=== PATIENT | female | born 1965 | race Caucasian/White ===

== ENCOUNTER → 2024-08-15 12:22 | Outpatient (CLI) | payer MEDICARE, SELFPAY ==
[2024-08-15 13:09] LABS: Add Manual Diff / Slide Review NO; Basophils Absolute Auto 100 /uL (0-100); Basophils Percent Auto 0.7 % (0-2); Eosinophils Absolute Auto 100 /uL (0-450); Eosinophils Percent Auto 1.4 % (2-4); Hematocrit 36.8 % (36-46); Hemoglobin 12.4 g/dL (12.0-16.0); Lymphocytes Absolute Auto 2200 /uL (1100-4500); Mean Corpuscular HGB Conc 33.6 % (30-36); Mean Corpuscular Hemoglobin 31.3 PG (26-34); Mean Corpuscular Volume 93.3 fL (80-100); Monocytes Absolute Auto 600 /uL (0-900); Monocytes Percent Auto 6.2 % (3-14); Neutrophils Absolute Auto 6000 /uL (1500-7000); Neutrophils Percent Auto 66.7 % (50-75); Platelet Count 260 X10^3/uL (150-400); Red Blood Cell Count 3.94 X10^6/uL (4.0-5.2); Red Cell Distribution Width 14.1 % (11.6-14.8); White Blood Cell Count 8.9 X10^3/uL (4.5-11.0)
[2024-08-15 13:37] LABS: Alanine Aminotransferase 17 IU/L (<35); Albumin 4.4 g/dL (3.5-5.0); Albumin Globulin Ratio 2.2 (1.0-2.8); Alkaline Phosphatase 36 U/L (38-126); Aspartate Aminotransferase 20 IU/L (14-36); BUN Creatinine Ratio 22.5 (6-22); Bilirubin Total 0.3 mg/dL (0.2-1.3); Blood Urea Nitrogen 25 mg/dL (7-17); Calcium 9.6 mg/dL (8.4-10.2); Carbon Dioxide 26 mmol/L (22-32); Chloride 106 mmol/L (98-107); Cholesterol 142 mg/dL (140-199); Estimated Glomerular Filt Rate 58 mL/min (>60); Glucose 199 mg/dL (70-99); HDL Cholesterol 57 mg/dL (40-60); HEMOLYSIS < 15 (0-50); LDL Cholesterol Calculated 75 mg/dL (<100); Potassium 4.8 mmol/L (3.4-5.1); Sodium 139 mmol/L (137-145); Total Protein 6.4 g/dL (6.3-8.2); Triglycerides 51 mg/dL (35-150)
[2024-08-15 15:48] LABS: Creatinine Urine Random 282.78 mg/dL
[2024-08-15 15:52] LABS: Microalbumin Urine Random 1.2 mg/dL (0-1.6)
== END ==
PROVIDERS: PCP Family Medicine; Referring Provider Family Medicine; Visit Provider Family Medicine
DX: E11.9 Type 2 diabetes mellitus without complications (principal)
CPT/HCPCS: 36415; 80053; 80061; 82043; 82570; 85025

== ENCOUNTER 2024-09-05 13:45 | Emergency (ER) | payer MEDICARE, MEDICAID, SELFPAY ==
[2024-09-05] VITALS (8 sets, daily range): BP systolic 143–170; BP diastolic 80–103; PULSE 75–85; RESP 12–36; TEMP 36.8; O2SAT 95–98; BMI 24.2
--- NOTE | 2024-09-05 14:10 | EKG_ITS ---
[address] [address] Test Date: 2024-09-05 Pat Name: Flor Mulligan Department: Room: Gender: Female [employer] Psychologist: FABIANO : 1965 Requested By: Order Number: [id number] Reading MD: Ramón Centeno Measurements Intervals [place] Rate: 72 P: 62 HI: 150 QRS: 76 QRSD: 76 T: 67 QT: 374 QTc: 409 Interpretive Statements Sinus rhythm with marked sinus arrhythmia Electronically Signed On 09-06-2024 18:59:15 PDT by Ramón Centeno
--- NOTE | 2024-09-05 14:17 | ED.NAVMDI ---
HPI - Nausea/Vomiting/Diarrhea General Chief complaint: Abdominal Pain Stated complaint: Throwing up all morning Time Seen by Provider: 09/05/24 14:17 Source: patient Mode of arrival: Ambulatory History of Present Illness HPI Narrative: 59-year-old female with past medical history of hyperlipidemia, diabetes, fibromyalgia, hypertension, presents to the emergency department from home for evaluation of nausea vomiting abdominal pain ongoing and persistent since yesterday. She states that she is not having any other symptoms such as headache visual disturbances chest pain shortness of breath or any other GI/ symptoms. Related Data Home Medications ?Medication ?Instructions ?Recorded ?Confirmed atorvastatin 40 mg tablet 40 mg PO DAILY 07/18/24 07/18/24 buspirone 30 mg tablet 30 mg PO BID 07/18/24 07/18/24 gabapentin 600 mg tablet 600 mg PO 3XD 07/18/24 07/18/24 lamotrigine 100 mg tablet 100 mg PO BID 07/18/24 07/18/24 metformin 1,000 mg tablet 1,000 mg PO BID 07/18/24 07/18/24 omeprazole 20 mg capsule,delayed 20 mg PO DAILY 07/18/24 07/18/24 release quetiapine 300 mg tablet 300 mg PO DAILY 07/18/24 07/18/24 sitagliptin phosphate 100 mg 100 mg PO DAILY 07/18/24 07/18/24 tablet (Januvia) Previous Rx's ?Medication ?Instructions ?Recorded duloxetine 60 mg capsule,delayed 60 mg PO DAILY #90 caps 07/18/24 release metoclopramide HCl 5 mg tablet 5 mg PO 4XD #120 tabs 07/18/24 pioglitazone 15 mg tablet 15 mg PO DAILY #90 tabs 07/18/24 lisinopril 5 mg tablet 5 mg PO DAILY #90 tabs 08/20/24 lorazepam 2 mg tablet 2 mg PO Q8H PRN anxiety #90 tabs 08/22/24 sodium,potassium,mag sulfates 17.5 See Rx Instructions PO .COMPLEX 08/30/24 gram-3.13 gram-1.6 gram oral soln #354 mL (Suprep Bowel Prep Kit) prochlorperazine 25 mg rectal 25 mg CA BID PRN nausea and 09/05/24 suppository (Compazine) vomiting 1 week #12 ea Allergies Allergy/AdvReac Type Severity Reaction Status Date / Time cefazolin (From [facility]) Allergy Verified 09/05/24 13:54 NSAIDS (Non-Steroidal Allergy Verified 09/05/24 13:54 Anti-Inflamma Review of Systems Review of Systems Narrative: General: Denies fever, chills, weight loss HEENT: Denies headache, eye drainage, eye irritation, head trauma, sore throat, voice change Cardiovascular: Denies any chest pain, palpitations, tachycardia Respiratory: Denies any shortness of breath, cough, wheeze, stridor GI/: Positive abdominal pain, nausea, vomiting, diarrhea, denies bright red blood per rectum, melanotic stools, urinary frequency, urinary retention, dysuria, hematuria MSK: Denies any joint pain, muscle pains, swelling Skin: Denies any rashes, lesions, discoloration Neuro: Denies any headache, lightheadedness, dizziness, fainting, weakness Psych: Denies SI/HI Patient History Medical History (Updated 09/05/24 @ 16:00 by Shahriar Kearns DO) DM type 2 (diabetes mellitus, type 2) Hyperlipidemia Sciatic pain Depression (~1997) History of bipolar disorder Anxiety (~1997) Headache (~2006) Fibromyalgia (~1996) Chronic back pain (~1994) Irritable bowel syndrome (~2009) GERD (gastroesophageal reflux disease) Hypertension (~1996) Surgical History (Updated 06/22/24 @ 21:05 by Alix Morel) Anesthesia Fibroids History of carpal tunnel repair History of tubal ligation (~1988) History of cholecystectomy History of shoulder surgery Family History (Updated 06/22/24 @ 21:08 by Alix Morel) Father Diabetes mellitus Hyperlipidemia Hypertension Mental health problem Mother ALS (amyotrophic lateral sclerosis) Brother Hyperlipidemia Hypertension Mental health problem Grandfather Diabetes mellitus Hyperlipidemia Hypertension Grandmother Cancer Diabetes mellitus Social History Smoking Status: Former smoker Smoking Status: Former smoker Exam Initial Vital Signs Initial Vital Signs: Vital Signs Temperature 98.3 F 09/05/24 13:53 Pulse Rate 75 09/05/24 13:53 Respiratory Rate 20 09/05/24 13:53 Blood Pressure 143/86 H 09/05/24 13:53 Pulse Oximetry 97 09/05/24 13:53 Oxygen Delivery Method Room Air 09/05/24 13:53 Course Orders Ordered: ED Orders 09/05/24 12:40 Complete Blood Count AUTO DIFF Stat Comprehensive Metabolic Panel Stat Lipase Stat MAG [Magnesium] Stat 09/05/24 14:03 EKG-12 Lead Stat 09/05/24 14:18 CT abdomen pelvis w con Stat 09/05/24 14:34 Ictotest Urine Stat Urine Microscopic Stat Ondansetron HCl (Ondansetron 4 Mg/2 Ml Inj) 4 mg IV NOW PRN PRN Reason: Nausea And Vomiting Last Admin: 09/05/24 14:38 Dose: 4 mg Documented By: JENNIFER Ondansetron HCl (Ondansetron 4 Mg Odt) 4 mg PO NOW PRN PRN Reason: Nausea And Vomiting Discontinued Medications Diphenhydramine HCl (Diphenhydramine 50 Mg/Ml Vial) 25 mg IV NOW ONE Stop: 09/05/24 15:38 Last Admin: 09/05/24 15:42 Dose: 25 mg Documented By: JENNIFER Sodium Chloride (Normal Saline 0.9%) 1,000 mls @ 1,000 mls/hr IV BOLUS ONE Stop: 09/05/24 15:17 Last Infusion: 09/05/24 15:34 Dose: Infused Documented By: Admin: 09/05/24 14:38 Dose: 1,000 mls/hr Documented By: JENNIFER Metoclopramide HCl (Metoclopramide 10 Mg/2 Ml Inj) 10 mg IV NOW ONE Stop: 09/05/24 15:38 Last Admin: 09/05/24 15:42 Dose: 10 mg Documented By: JENNIFER Morphine Sulfate (Morphine 4 Mg/Ml Inj) 4 mg IV NOW ONE Stop: 09/05/24 15:38 Last Admin: 09/05/24 15:42 Dose: 4 mg Documented By: JENNIFER Vital Signs Vital signs: Vital Signs - 8 hr 09/05/24 13:53 09/05/24 14:39 09/05/24 15:03 Temperature 98.3 F Pulse Rate 75 76 77 Respiratory Rate 20 12 26 H Blood Pressure 143/86 H 165/96 H Pulse Oximetry 97 97 95 Oxygen Delivery Method Room Air Room Air 09/05/24 15:04 09/05/24 15:04 09/05/24 15:09 Temperature Pulse Rate 75 Respiratory Rate 36 H Blood Pressure 159/100 H 158/103 H Pulse Oximetry 98 Oxygen Delivery Method 09/05/24 15:09 09/05/24 15:30 09/05/24 15:30 Temperature Pulse Rate 78 78 Respiratory Rate 21 23 Blood Pressure 170/91 H Pulse Oximetry 97 98 Oxygen Delivery Method Room Air MDM - Nausea/Vomiting/Diarrhea Differential Diagnosis Differential diagnosis: Likely food poisoning, gastroenteritis, drug-induced nausea and vomiting, dehydration and other (Electrolyte abnormality, diverticulitis, drug induced vomiting) Lab Data 09/05/24 12:40 09/05/24 12:40 Labs: Lab Results 09/05/24 09/05/24 Range/Units 12:40 14:34 WBC 13.6 H (4.5-11.0) X10^3/uL RBC 4.46 (4.0-5.2) X10^6/uL Hgb 13.6 (12.0-16.0) g/dL Hct 41.3 (36-46) % MCV 92.6 (80-100) fL MCH 30.5 (26-34) PG MCHC 33.0 (30-36) % RDW 13.9 (11.6-14.8) % Plt Count 250 (150-400) X10^3/uL Neut % (Auto) 91.0 H (50-75) % Lymph % (Auto) 5.1 L (25-40) % [place] % (Auto) 3.4 (3-14) % Eos % (Auto) 0.1 L (2-4) % Baso % (Auto) 0.4 (0-2) % Neut # (Auto) 98404 H (4430-8593) /uL Lymph # (Auto) 700 L (6611-6208) /uL [place] # (Auto) 500 (0-900) /uL Eos # (Auto) 0 (0-450) /uL Baso # (Auto) 100 (0-100) /uL Sodium 138 (137-145) mmol/L Potassium 4.4 (3.4-5.1) mmol/L Chloride 104 (98-107) mmol/L Carbon Dioxide 21 L (22-32) mmol/L BUN 37 H (7-17) mg/dL Creatinine 1.35 H (0.52-1.04) mg/dL Estimated GFR 46 L (>60) mL/min BUN/Creatinine Ratio 27.4 H (6-22) Glucose 260 H (70-99) mg/dL Calcium 10.0 (8.4-10.2) mg/dL Magnesium 2.0 (1.6-2.3) mg/dL Total Bilirubin 0.5 (0.2-1.3) mg/dL AST 27 (14-36) IU/L ALT 21 (<35) IU/L Alkaline Phosphatase 51 (38-126) U/L Total Protein 7.3 (6.3-8.2) g/dL Albumin 4.7 (3.5-5.0) g/dL Globulin 2.6 (1.7-4.1) g/dL Albumin/Globulin Ratio 1.8 (1.0-2.8) Lipase 27 (23-300) U/L Ur Bilirubin Confirm Negative (Negative) Urine RBC None seen (0-5/HPF) Urine WBC None seen (0-5/HPF) Ur Squamous Epith Cells 0-1 /hpf (0-5/HPF) Urine Bacteria None seen (None) Ur Culture Indicated? Cult not indicated Vol Urine Centrifuged 10ml (spun) Urine Dip Bedside Urine Glucose 100 mg/dl Bedside Urine Bilirubin + 1 Bedside Urine Ketone + 15 Urine Specific [place] 1.030 Bedside Urine Occult Blood - Negative Bedside Urine pH 6.0 Bedside Urine Protein + 30 Bedside Urine Urobilinogen - Negative Bedside Urine Nitrite - Negative Bedside Urine Leukocytes - Negative Esterase Imaging Data CT scan - abdomen/pelvis: Radiologist's Impression: [place] [address] CT Scan Report Signed Patient: Flor Mulligan MR#: [id number] : 1965 Acct:[id number] Age/Sex: 59 / F Date of Service: 09/05/24 Loc: ED Accession Number: [id number] Procedure: CT abdomen pelvis w con Ordering Provider: Shahriar Kearns D.O. PROCEDURE: CT ABDOMEN PELVIS W CON INDICATIONS: abd pain, n/v TECHNIQUE: After the administration of intravenous contrast, axial sections acquired from the lung bases to the pubic symphysis. Coronal and sagittal reformats were performed. For radiation dose reduction, the following was used: automated exposure control, adjustment of mA and/or kV according to patient size. COMPARISON: None. FINDINGS: Image quality: Diagnostic. Lower Chest: No significant findings. ABDOMEN: Liver: No solid mass. Gallbladder: Status post cholecystectomy. Biliary ducts: No biliary dilation. Pancreas: No ductal dilation. Spleen: Size is within normal limits. Adrenal Glands: No adrenal nodules. Kidneys and Ureters: No hydronephrosis. No solid mass. No complex renal cystic lesion which requires follow up. Mild multifocal right renal cortical scarring. Stomach and Bowel: Small hiatal hernia. Mild diffuse bowel wall thickening in the colon is suspicious for a nonspecific colitis. There is mild pericolonic fat stranding at the descending colon. Appendix is normal in size. No signs of small bowel obstruction. Peritoneum: No abnormal intraperitoneal fluid. No free air. Ventral Wall: No significant ventral hernia. Abdominal Nodes: No retroperitoneal or mesenteric adenopathy by size criteria. Vessels: Aorta and inferior vena cava are normal in size. PELVIS: Pelvic Organs: Unremarkable. Bladder: No bladder wall thickening, accounting for underdistention. Pelvic Nodes: No enlarged lymph nodes. Miscellaneous: No inguinal hernias are seen. Bones: No aggressive osseous abnormality. Degenerative changes are seen in the included spine with facet hypertrophy and grade 1 anterolisthesis of L4 on L5. IMPRESSION: Diffuse bowel wall thickening in the colon and mild pericolonic fat stranding are suspicious for a nonspecific colitis. MDM Narrative Medical decision making narrative: 59-year-old female with past medical history of fibromyalgia, hypertension, hyperlipidemia, diabetes, presenting to the emergency department for home for evaluation of abdominal pain nausea vomiting diarrhea, she states that she has been feeling ?bad over the past few days but states that she felt better yesterday did try to eat tacos and states that last night it made her symptoms worse, states that she woke up and it is now unable to tolerate anything p.o.. She does admit to daily marijuana smoking. She denies any other symptoms. Patient had lab work imaging urinalysis performed here in the emergency department. Patient with diffuse colitis nonspecific more likely viral in nature, patient not in DKA. Patient with improving symptoms after administration medication here patient was given strict return precautions she verbalized understanding of this agrees to being discharged home with outpatient follow up Discharge Plan Departure Patient Disposition: Home Clinical Impression: Abdominal pain, Colitis Instructions: DI for Abdominal Pain-Adult Activity Restrictions/Additional Instructions: Please follow up with the primary care Please read the discharge instructions sheet carefully and bring all papers to all doctor follow-up visits, as it may contain information that your doctor may want to see. Disease processes change and evolve, if your symptoms worsen or if you develop any new symptoms that are concerning to you please return for evaluation. Your evaluation today does not show any evidence of any life-threatening/serious illnesses requiring admission to the hospital or surgery. Please follow-up with your doctor for re-evaluation in approximately 1 day. Seek immediate medical attention for any worrisome symptoms. *If you do not have a primary care provider please contact the [facility] Resource line at [phone]. They will ask some questions about your medical history and help get you set up with a doctor in the community. Prescriptions: New prochlorperazine [Compazine] 25 mg suppository 25 mg CA BID PRN (Reason: nausea and vomiting) 7 Days Qty: 12 0RF No Action metformin 1,000 mg tablet 1,000 mg PO BID atorvastatin 40 mg tablet 40 mg PO DAILY lamotrigine 100 mg tablet 100 mg PO BID buspirone 30 mg tablet 30 mg PO BID quetiapine 300 mg tablet 300 mg PO DAILY omeprazole 20 mg capsule,delayed release(DR/EC) 20 mg PO DAILY gabapentin 600 mg tablet 600 mg PO 3XD Januvia 100 mg tablet 100 mg PO DAILY duloxetine 60 mg capsule,delayed release(DR/EC) 60 mg PO DAILY Qty: 90 3RF metoclopramide HCl 5 mg tablet 5 mg PO 4XD Qty: 120 3RF pioglitazone 15 mg tablet 15 mg PO DAILY Qty: 90 3RF lisinopril 5 mg tablet 5 mg PO DAILY Qty: 90 2RF lorazepam 2 mg tablet 2 mg PO Q8H PRN (Reason: anxiety) Qty: 90 0RF sodium,potassium,mag sulfates [Suprep Bowel Prep Kit] 17.5-3.13-1.6 gram recon soln See Rx Instructions PO .COMPLEX Qty: 354 0RF Rx Instructions: take as directed by Physician Referrals: Dinora Romo MD [Primary Care Provider, Family Practice] Stand Alone Forms: Patient Portal/API
[2024-09-05 14:30] LABS: Add Manual Diff / Slide Review NO; Basophils Absolute Auto 100 /uL (0-100); Basophils Percent Auto 0.4 % (0-2); Eosinophils Absolute Auto 0 /uL (0-450); Eosinophils Percent Auto 0.1 % (2-4); Hematocrit 41.3 % (36-46); Hemoglobin 13.6 g/dL (12.0-16.0); Lymphocytes Absolute Auto 700 /uL (1100-4500); Lymphocytes Percent Auto 5.1 % (25-40); Mean Corpuscular Hemoglobin 30.5 PG (26-34); Mean Corpuscular Volume 92.6 fL (80-100); Monocytes Absolute Auto 500 /uL (0-900); Monocytes Percent Auto 3.4 % (3-14); Neutrophils Absolute Auto 12400 /uL (1500-7000); Platelet Count 250 X10^3/uL (150-400); Red Blood Cell Count 4.46 X10^6/uL (4.0-5.2); Red Cell Distribution Width 13.9 % (11.6-14.8); White Blood Cell Count 13.6 X10^3/uL (4.5-11.0)
[2024-09-05] MEDS: SODIUM CHLORIDE 0.9% 1,000 ML 1000 ML IV (14:38)
[2024-09-05] MEDS: ONDANSETRON 4 MG/2 ML INJ IV (14:38)
[2024-09-05 14:39] LABS: Alanine Aminotransferase 21 IU/L (<35); Albumin 4.7 g/dL (3.5-5.0); Albumin Globulin Ratio 1.8 (1.0-2.8); Alkaline Phosphatase 51 U/L (38-126); Aspartate Aminotransferase 27 IU/L (14-36); BUN Creatinine Ratio 27.4 (6-22); Bilirubin Total 0.5 mg/dL (0.2-1.3); Blood Urea Nitrogen 37 mg/dL (7-17); Carbon Dioxide 21 mmol/L (22-32); Chloride 104 mmol/L (98-107); Estimated Glomerular Filt Rate 46 mL/min (>60); Globulin 2.6 g/dL (1.7-4.1); Glucose 260 mg/dL (70-99); HEMOLYSIS < 15 (0-50); Lipase 27 U/L (23-300); Potassium 4.4 mmol/L (3.4-5.1); Sodium 138 mmol/L (137-145); Total Protein 7.3 g/dL (6.3-8.2)
[2024-09-05 14:46] LABS: Ictotest Urine Negative (Negative)
[2024-09-05 14:47] LABS: Urine Volume 10mL (spun)
[2024-09-05 14:49] LABS: Bacteria Urine None Seen; RBC Urine None Seen (0-5/HPF); WBC Urine None Seen (0-5/HPF)
[2024-09-05 14:50] LABS: Culture Indicated Urine Cult Not Indicated; Squamous Epithelial Cell Urine 0-1 /HPF (0-5/HPF)
[2024-09-05] MEDS: diphenhydrAMINE 50 MG/ML VIAL 25 MG IV (15:42)
[2024-09-05] MEDS: MORPHINE 4 MG/ML INJ IV (15:42)
[2024-09-05] MEDS: METOCLOPRAMIDE 10 MG/2 ML INJ IV (15:42)
== END 2024-09-05 16:32 | disposition home or self-care (01) ==
PROVIDERS: Emergency Provider Student in an Organized Health Care Education/Training Program; PCP Family Medicine
DX: K52.9 Noninfective gastroenteritis and colitis, unspecified (principal); R10.9 Unspecified abdominal pain; R11.2 Nausea with vomiting, unspecified
CPT/HCPCS: 36415; 74177; 80053; 81003; 81015; 83690; 83735; 85025; 93005; 96361; 96374; 96375; 99284; J1200; J2270; J2405; J2765; Q9967

== ENCOUNTER 2024-09-20 12:27 | Day surgery (SDC) | payer MEDICARE, MEDICAID, SELFPAY ==
--- NOTE | 2024-09-20 | PATH_ITS ---
[facility] Accession Number: [id number] No. of containers..02 Tissue . 01 Material submitted: . PART A: colon - COLON, SIGMOID MUCOSA PART B: colon - COLON, SIGMOID POLYP . 01 Diagnosis: Part A: COLON, SIGMOID MUCOSA: Colonic mucosa with no diagnostic alterations. No active inflammation, granulomas, dysplasia, or malignancy identified. . Part B: COLON, SIGMOID POLYP: Hyperplastic polyp. [facility] 09/27/2024 1414 Local . 01 Electronically signed: . Wenceslao Michaud MD, Pathologist NPI- [id number] . 01 Gross description: . Part A: COLON, SIGMOID MUCOSA: Received in formalin are multiple fragment(s) of mathew, soft tissue measuring 0.1 x 0.1 x 0.1 cm to 0.3 x 0.3 x 0.2 cm submitted entirely in 1 cassette(s) . Part B: COLON, SIGMOID POLYP: Received in formalin are 2 fragment(s) of mathew, soft tissue measuring 0.4 x 0.4 x 0.2 cm to 0.6 x 0.3 x 0.3 cm submitted entirely in 1 cassette(s) /[facility] 09/27/2024 1414 Local . 01 Pathologist provided ICD-10: K63.5, R19.5 . 01 CPT . 787464, 863515 Specimen Comment: A courtesy copy of this report has been sent to [phone] Performed at: [address] [id number] MD Wenceslao Michaud MD Phone: [phone]
[2024-09-20 12:45] VITALS: BP 145/104; PULSE 102; RESP 17; TEMP 36.9; O2SAT 96
[2024-09-20] MEDS: LACTATED RINGERS 1,000 ML 84 ML IV (13:01)
[2024-09-20] MEDS: ONDANSETRON 4 MG/2 ML INJ IV (13:52)
--- NOTE | 2024-09-20 14:12 | PM.HP.IH.1 ---
History of Present Illness History of Present Illness Date Patient Seen: 09/20/24 Time Patient Seen: 14:12 Chief complaint: Colonoscopy Narrative: Flor is a 59-year-old woman here for a screening colonoscopy. She has had a colonoscopy before but it was over 10 years ago. No first-degree family members with colon cancer. [facility] Medical History (Updated 09/20/24 @ 14:13 by Michael Dewitt MD) DM type 2 (diabetes mellitus, type 2) Hyperlipidemia Sciatic pain Depression (~1997) History of bipolar disorder Anxiety (~1997) Headache (~2006) Fibromyalgia (~1996) Chronic back pain (~1994) Irritable bowel syndrome (~2009) GERD (gastroesophageal reflux disease) Hypertension (~1996) Surgical History (Updated 06/22/24 @ 21:05 by Alix Morel) Anesthesia Fibroids History of carpal tunnel repair History of tubal ligation (~1988) History of cholecystectomy History of shoulder surgery Family History (Updated 06/22/24 @ 21:08 by Alix Morel) Father Diabetes mellitus Hyperlipidemia Hypertension Mental health problem Mother ALS (amyotrophic lateral sclerosis) Brother Hyperlipidemia Hypertension Mental health problem Grandfather Diabetes mellitus Hyperlipidemia Hypertension Grandmother Cancer Diabetes mellitus Social History Smoking Status: Current every day smoker alcohol intake: never Meds Home Medications and Allergies Home Medications ?Medication ?Instructions ?Recorded ?Confirmed ?Type atorvastatin 40 mg tablet 40 mg PO DAILY 07/18/24 09/20/24 History buspirone 30 mg tablet 30 mg PO BID 07/18/24 09/20/24 History duloxetine 60 mg capsule,delayed 60 mg PO DAILY #90 caps 07/18/24 09/20/24 Rx release lamotrigine 100 mg tablet 100 mg PO BID 07/18/24 09/20/24 History metformin 1,000 mg tablet 1,000 mg PO BID 07/18/24 09/20/24 History metoclopramide HCl 5 mg tablet 5 mg PO 4XD #120 tabs 07/18/24 09/20/24 Rx omeprazole 20 mg capsule,delayed 20 mg PO DAILY 07/18/24 09/20/24 History release pioglitazone 15 mg tablet 15 mg PO DAILY #90 tabs 07/18/24 09/20/24 Rx quetiapine 300 mg tablet 300 mg PO DAILY 07/18/24 09/20/24 History sitagliptin phosphate 100 mg 100 mg PO DAILY 07/18/24 09/20/24 History tablet (Januvia) lisinopril 5 mg tablet 5 mg PO DAILY #90 tabs 08/20/24 09/20/24 Rx Held on 09/20/24. Instructions: not taking right now lorazepam 2 mg tablet 2 mg PO Q8H PRN anxiety #90 tabs 08/22/24 09/20/24 Rx gabapentin 600 mg tablet 600 mg PO 3XD #90 tabs 09/13/24 09/20/24 Rx Allergies Allergy/AdvReac Type Severity Reaction Status Date / Time cefazolin (From [facility]) Allergy Verified 09/20/24 12:41 Cephalosporins Allergy Verified 09/20/24 12:41 NSAIDS (Non-Steroidal Allergy Verified 09/20/24 12:41 Anti-Inflamma Exam Vital Signs (past 8 hours): - 09/20/24 12:45 Temperature 98.4 F Pulse Rate 102 H Respiratory Rate 17 Blood Pressure 145/104 H Pulse Oximetry 96 Oxygen Delivery Method Room Air Oxygen Delivery Method Room Air Const General: No acute distress Assessment & Plan Assessment and plan (1) Colon cancer screening: Status: Acute Plan Colonoscopy Time-Based Coding :: [TOTAL MINUTES] spent with patient and on the chart (including review of chart, obtaining history, exam, reviewing outside data, placing orders, documenting exam and treatment plan, and counseling patient) on [DATE]. 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
--- NOTE | 2024-09-20 14:48 | P.OP.COLON_ITS ---
Operative Date/Time/Diagnoses Date of procedure: 09/20/24 Time of procedure: 14:48 Pre-op diagnosis: Colon cancer screening Post-op diagnosis: same Procedure & Clinicians Study performed: Colonoscopy Same procedure(s) as scheduled: Yes Surgeon: Michael Dewitt Procedure Notes Procedure in detail: Surgeon: Michael Dewitt MD Anesthesia: Aleida Johnson REGISTER REPAIRER Procedure: The patient was brought to the endoscopy suite, placed in left lateral decubitus position. The patient was connected to monitoring devices. A time-out was performed. Sedation was administered. Once the patient was adequately sedated, a digital rectal exam was performed and was normal. The scope was then inserted and advanced to the cecum where the appendiceal orifice was identified and photographed. The scope was then slowly withdrawn over greater than 6 minutes. The mucosa was thoroughly inspected. There was a scott ear mucosal ulceration in the sigmoid colon at approximately 30 cm. Biopsies were taken with Jumbo forceps. There were 2 small polyps in the sigmoid colon removed with snare and sent together. The scope was retroflexed in the rectum. No other abnormalities were found. The scope was straightened and removed. The patient was awakened and brought to recovery. Scope withdrawal time: 15 minutes Sedation time: 32 minutes EBL: 5 mL Findings: Linear mucosal ulceration in the sigmoid colon and 2 small sigmoid colon polyps Post-procedure Disposition: PACU
[2024-09-20 14:50] VITALS: BP 125/84; PULSE 77; RESP 22; TEMP 36.2; O2SAT 98
[2024-09-20 15:01] VITALS: BP 138/100; PULSE 79; RESP 17; O2SAT 97
== END 2024-09-20 15:03 | disposition home or self-care (01) ==
PROVIDERS: PCP Family Medicine; Referring Provider Surgery; Visit Provider Surgery
PROC: 0DJD8ZZ Inspection of Lower Intestinal Tract, Via Natural or Artificial Opening Endoscopic (ICD-10-PCS; CPT 45378; principal; 2024-09-20 14:00)
DX: Z12.11 Encounter for screening for malignant neoplasm of colon (principal); K63.5 Polyp of colon
CPT/HCPCS: 45385; J2405; J2704

== ENCOUNTER 2024-09-29 13:16 | Emergency (ER) | payer MEDICARE, MEDICAID, SELFPAY ==
[2024-09-29] VITALS (14 sets, daily range): BP systolic 117–169; BP diastolic 69–97; PULSE 74–89; RESP 8–20; TEMP 36.7–36.8; O2SAT 92–99; BMI 26.2
--- NOTE | 2024-09-29 13:20 | EKG_ITS ---
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
--- NOTE | 2024-09-29 13:21 | DI.CT.S_ITS ---
PROCEDURE: CT CERVICAL SPINE WO CON INDICATIONS: 1st seizure, fall, hit head TECHNIQUE: Noncontrast 3 mm thick sections acquired from the skull base to the T4 level. Sagittal and coronal reformats were then constructed. For radiation dose reduction, the following was used: automated exposure control, adjustment of mA and/or kV according to patient size. COMPARISON: None. FINDINGS: Image quality: Diagnostic Bones: Moderate cervical spondylosis with disc space height loss most significant at C5-C6 and C6-C7. Vertebral body heights are well maintained. No traumatic subluxation. Ossification inferior to the C1/C2 articulation, likely chronic. Age-indeterminate bone fragment also seen to the right of the posterior C2 ring. Soft tissues: No significant prevertebral soft tissue swelling. No apical pneumothorax. 1.9 cm left thyroid nodule. 1.4 cm right thyroid nodule also seen IMPRESSION: Moderate spondylosis of the cervical spine. No acute displaced fracture or traumatic subluxation. Small bone fragments as described above, age-indeterminate but probably nonacute adjacent to C1 on C2. If there is high concern for further derangement, consider MRI evaluation. 1.9 cm incidentally noted left thyroid nodule, consider nonurgent sonographic follow-up. Dictated by: Hector Connell M.D. on 09/29/2024 at 13:26 Approved by: Hector Connell M.D. on 09/29/2024 at 13:29
--- NOTE | 2024-09-29 13:21 | DI.CT.S_ITS ---
PROCEDURE: CT HEAD/BRAIN WO CON INDICATIONS: 1st seizure TECHNIQUE: Noncontrast 4.5 mm thick angled axial sections acquired from the foramen magnum to the vertex, with coronal and sagittal reformats. For radiation dose reduction, the following was used: automated exposure control, adjustment of mA and/or kV according to patient size. COMPARISON: None. FINDINGS: Image quality: Excellent CSF spaces: Basal cisterns are patent. Lateral ventricles are symmetric. Volume: Minimal volume loss Brain: No intracranial hemorrhage. Ochoa-white differentiation is grossly maintained. Craniofacial structures: Mild paranasal sinus mucosal thickening IMPRESSION: No acute intracranial abnormality. If there is high concern for parenchymal pathology, consider further evaluation with MRI. Dictated by: Hector Connell M.D. on 09/29/2024 at 13:24 Approved by: Hector Connell M.D. on 09/29/2024 at 13:26
[2024-09-29 13:27] LABS: Add Manual Diff / Slide Review NO; Basophils Absolute Auto 100 /uL (0-100); Eosinophils Absolute Auto 200 /uL (0-450); Hematocrit 39.2 % (36-46); Lymphocytes Absolute Auto 3500 /uL (1100-4500); Lymphocytes Percent Auto 38.2 % (25-40); Mean Corpuscular HGB Conc 33.1 % (30-36); Mean Corpuscular Hemoglobin 30.7 PG (26-34); Mean Corpuscular Volume 92.8 fL (80-100); Monocytes Absolute Auto 500 /uL (0-900); Monocytes Percent Auto 5.7 % (3-14); Neutrophils Absolute Auto 4900 /uL (1500-7000); Neutrophils Percent Auto 53.1 % (50-75); Platelet Count 267 X10^3/uL (150-400); Red Blood Cell Count 4.22 X10^6/uL (4.0-5.2); Red Cell Distribution Width 13.5 % (11.6-14.8); White Blood Cell Count 9.2 X10^3/uL (4.5-11.0)
[2024-09-29] MEDS: diazePAM 10 MG/2 ML SYRINGE 5 MG IV (13:30)
[2024-09-29 13:47] LABS: Alanine Aminotransferase 24 IU/L (<35); Albumin 4.8 g/dL (3.5-5.0); Albumin Globulin Ratio 1.8 (1.0-2.8); Alkaline Phosphatase 41 U/L (38-126); Aspartate Aminotransferase 28 IU/L (14-36); BUN Creatinine Ratio 19.5 (6-22); Bilirubin Total 0.4 mg/dL (0.2-1.3); Blood Urea Nitrogen 22 mg/dL (7-17); Calcium 9.9 mg/dL (8.4-10.2); Carbon Dioxide 14 mmol/L (22-32); Chloride 107 mmol/L (98-107); Estimated Glomerular Filt Rate 56 mL/min (>60); Globulin 2.7 g/dL (1.7-4.1); Glucose 167 mg/dL (70-99); HEMOLYSIS < 15 (0-50); Potassium 3.9 mmol/L (3.4-5.1); Sodium 140 mmol/L (137-145); Total Protein 7.5 g/dL (6.3-8.2)
[2024-09-29 13:48] LABS: Magnesium 1.5 mg/dL (1.6-2.3)
[2024-09-29 14:00] LABS: Troponin I < 0.012 ng/mL (0.01-0.034)
[2024-09-29 14:20] LABS: Appearance Urine UA CLEAR; Bilirubin Urine UA NEGATIVE (NEGATIVE); Color Urine UA YELLOW; Glucose Urine UA NEGATIVE (Negative); Ketones Urine UA NEGATIVE (NEGATIVE); Leukocyte Esterase Urine UA NEGATIVE (NEGATIVE); Nitrite Urine UA NEGATIVE (Negative); Occult Blood Urine UA NEGATIVE (Negative); Protein Urine UA NEGATIVE (Negative); Specific Gravity Urine UA >=1.030 (1.000-1.035); Urobilinogen Urine UA 0.2 E.U./dL (0.2)
[2024-09-29 14:28] LABS: pH Urine UA 5.5 (4.5-8.0)
[2024-09-29 14:29] LABS: Bacteria Urine None Seen; RBC Urine None Seen (0-5/HPF); Squamous Epithelial Cell Urine 1-5 /HPF (0-5/HPF); Urine Volume 10mL (spun); WBC Urine None Seen (0-5/HPF)
[2024-09-29 15:22] LABS: Ur Creatinine Normal (Normal); Ur Specific Gravity Normal (Normal); Urine pH Normal (Normal)
[2024-09-29 15:23] LABS: UR Morphine/Opiate cutoff 300 Negative (Negative); Urine Amphetamines Negative (Negative); Urine Barbiturates Negative (Negative); Urine Benzodiazepines Positive (Negative); Urine Cocaine Negative (Negative); Urine MDMA Negative (Negative); Urine Methadone Negative (Negative); Urine Methamphetamines Negative (Negative); Urine Oxycodone Negative (Negative); Urine Phencyclidine Negative (Negative); Urine Tetrahydrocannabinol Positive (Negative); Urine Tricyclic Antidepressant Positive (Negative)
--- NOTE | 2024-09-29 15:41 | ED.NEUROSD ---
HPI - Neuro Symptoms/Deficit General Chief Complaint: Neuro Symptoms/Deficit Stated Complaint: Seizure Time Seen by Provider: 09/29/24 13:18 Source: patient and EMS Mode of arrival: EMS History of Present Illness HPI Narrative: 59-year-old woman with a history of bipolar 1 disorder, anxiety on lorazepam 2 mg t.i.d., diabetes, reflux, sleep walking, hyperlipidemia who presents today after having a witnessed seizure at home. sHe has never had a seizure before. She and her daughter note that she has not taken her lorazepam for almost 24 hours. Prescription was out daughter was actually on her way home from [employer] with the refilled prescription, as she walked in the door her mother said she was not feeling well and then had an approximately 45 2nd seizure. She hit the left side of her jaw on the edge of the kitchen table as she fell. She does have an abrasion to her left face. She was initially significantly confused and combative upon awakening. Clearly postictal for almost 30 minutes. Patient notes she had a colonoscopy about a week and a half ago with significant stool output both pre and post colonoscopy. She also notes that she has slept very poorly for the last 2 nights. No headache, chest pain, shortness of breath, abdominal pain, she did not have loss of bowel or bladder with the incident. On Anticoagulants: No Related Data Home Medications ?Medication ?Instructions ?Recorded ?Confirmed atorvastatin 40 mg tablet 40 mg PO DAILY 07/18/24 09/20/24 buspirone 30 mg tablet 30 mg PO BID 07/18/24 09/20/24 lamotrigine 100 mg tablet 100 mg PO BID 07/18/24 09/20/24 metformin 1,000 mg tablet 1,000 mg PO BID 07/18/24 09/20/24 omeprazole 20 mg capsule,delayed 20 mg PO DAILY 07/18/24 09/20/24 release quetiapine 300 mg tablet 300 mg PO DAILY 07/18/24 09/20/24 sitagliptin phosphate 100 mg 100 mg PO DAILY 07/18/24 09/20/24 tablet (Januvia) Previous Rx's ?Medication ?Instructions ?Recorded duloxetine 60 mg capsule,delayed 60 mg PO DAILY #90 caps 07/18/24 release metoclopramide HCl 5 mg tablet 5 mg PO 4XD #120 tabs 07/18/24 pioglitazone 15 mg tablet 15 mg PO DAILY #90 tabs 07/18/24 lisinopril 5 mg tablet 5 mg PO DAILY #90 tabs 08/20/24 gabapentin 600 mg tablet 600 mg PO 3XD #90 tabs 09/13/24 lorazepam 2 mg tablet 2 mg PO Q8H PRN anxiety #90 tabs 09/28/24 Allergies Allergy/AdvReac Type Severity Reaction Status Date / Time cefazolin (From [facility]) Allergy Mild Rash Verified 09/29/24 16:01 Review of Systems Review of Systems Narrative: Pertinent positive and negative findings as per HPI Hematologic/Lymphatic On Anticoagulants: No Patient History Medical History DM type 2 (diabetes mellitus, type 2) Hyperlipidemia Sciatic pain Depression (~1997) History of bipolar disorder Anxiety (~1997) Headache (~2006) Fibromyalgia (~1996) Chronic back pain (~1994) Irritable bowel syndrome (~2009) GERD (gastroesophageal reflux disease) Hypertension (~1996) Surgical History Anesthesia Fibroids History of carpal tunnel repair History of tubal ligation (~1988) History of cholecystectomy History of shoulder surgery Family History Father Diabetes mellitus Hyperlipidemia Hypertension Mental health problem Mother ALS (amyotrophic lateral sclerosis) Brother Hyperlipidemia Hypertension Mental health problem Grandfather Diabetes mellitus Hyperlipidemia Hypertension Grandmother Cancer Diabetes mellitus Social History alcohol intake: never Exam Initial Vital Signs Initial Vital Signs: Vital Signs Temperature 98.1 F 09/29/24 13:21 Pulse Rate 89 09/29/24 13:21 Respiratory Rate 20 09/29/24 13:21 Blood Pressure 141/97 H 09/29/24 13:21 Pulse Oximetry 94 09/29/24 13:21 Oxygen Delivery Method Room Air 09/29/24 13:21 General: Chronically ill-appearing, still postictal, slightly agitated can be calmed, dilated pupils, abrasion to the left side of her cheek HEENT: Moist mucous membranes, normal sclera with reactive pupils, she has a lateral bruise along the mandibular edge of the left where she hit the edge of the table Neck: No significant midline tenderness Respiratory: Lungs are clear to auscultation, no wheezing no rales no rhonchi. Full and symmetrical air movement Cardiac: Tachycardic but otherwise Regular rate and rhythm no murmurs no bruits Abdomen: Soft, nontender, no rebound or guarding, no flank pain, no bruising or contusion Skin: Warm and dry, no rashes Neurologic: Hyperreflexic without clonus, agitated and still slightly confused Extremities: No trauma, well perfused Course Orders Ordered: ED Orders 09/29/24 13:14 EKG-12 Lead Stat 09/29/24 13:19 Complete Blood Count AUTO DIFF Stat Comprehensive Metabolic Panel Stat Magnesium Stat Prolactin Stat Troponin I Stat 09/29/24 13:21 CT cervical spine wo con Stat CT head/brain wo con Stat 09/29/24 14:10 UA dip and micro [Urinalysis and Microscopic] Stat Urine Drug Screen, Rapid Stat Discontinued Medications Diazepam (Diazepam 10 Mg/2 Ml Syringe) 5 mg IV NOW ONE Stop: 09/29/24 13:25 Last Admin: 09/29/24 13:30 Dose: 5 mg Documented By: ASAEL Lorazepam (Lorazepam 2 Mg/Ml Inj) 2 mg IV NOW ONE Stop: 09/29/24 13:21 Last Admin: 09/29/24 13:28 Dose: Not Given Documented By: ASAEL Vital Signs Vital signs: Vital Signs - 8 hr 09/29/24 13:21 09/29/24 13:24 09/29/24 13:27 Temperature 98.1 F Pulse Rate 89 86 85 Respiratory Rate 20 8 L 12 Blood Pressure 141/97 H Pulse Oximetry 94 97 96 Oxygen Delivery Method Room Air 09/29/24 13:27 09/29/24 13:30 09/29/24 13:30 Temperature Pulse Rate 89 Respiratory Rate 16 Blood Pressure 149/89 H 142/91 H Pulse Oximetry 95 Oxygen Delivery Method 09/29/24 13:59 09/29/24 13:59 09/29/24 14:00 Temperature Pulse Rate 78 79 Respiratory Rate 13 19 Blood Pressure 123/76 Pulse Oximetry 97 98 Oxygen Delivery Method MDM - Neuro Symptoms/Deficit Lab Data 09/29/24 13:19 09/29/24 13:19 Labs: Lab Results 09/29/24 09/29/24 09/29/24 Range/Units 13:19 14:10 14:10 WBC 9.2 (4.5-11.0) X10^3/uL RBC 4.22 (4.0-5.2) X10^6/uL Hgb 13.0 (12.0-16.0) g/dL Hct 39.2 (36-46) % MCV 92.8 (80-100) fL MCH 30.7 (26-34) PG MCHC 33.1 (30-36) % RDW 13.5 (11.6-14.8) % Plt Count 267 (150-400) X10^3/uL Neut % (Auto) 53.1 (50-75) % Lymph % (Auto) 38.2 (25-40) % [place] % (Auto) 5.7 (3-14) % Eos % (Auto) 2.0 (2-4) % Baso % (Auto) 1.0 (0-2) % Neut # (Auto) 4900 (0805-9576) /uL Lymph # (Auto) 3500 (0315-1183) /uL [place] # (Auto) 500 (0-900) /uL Eos # (Auto) 200 (0-450) /uL Baso # (Auto) 100 (0-100) /uL Sodium 140 (137-145) mmol/L Potassium 3.9 (3.4-5.1) mmol/L Chloride 107 (98-107) mmol/L Carbon Dioxide 14 L (22-32) mmol/L BUN 22 H (7-17) mg/dL Creatinine 1.13 H (0.52-1.04) mg/dL Estimated GFR 56 L (>60) mL/min BUN/Creatinine Ratio 19.5 (6-22) Glucose 167 H (70-99) mg/dL Calcium 9.9 (8.4-10.2) mg/dL Magnesium 1.5 L (1.6-2.3) mg/dL Total Bilirubin 0.4 (0.2-1.3) mg/dL AST 28 (14-36) IU/L ALT 24 (<35) IU/L Alkaline Phosphatase 41 (38-126) U/L Troponin I < 0.012 (0.01-0.034) ng/mL Total Protein 7.5 (6.3-8.2) g/dL Albumin 4.8 (3.5-5.0) g/dL Globulin 2.7 (1.7-4.1) g/dL Albumin/Globulin Ratio 1.8 (1.0-2.8) Prolactin 77.0 H (3.0-18.6) ng/mL Urine Color Yellow Urine Appearance Clear Urine pH 5.5 Normal (4.5-8.0) Ur Specific Lutz >=1.030 H (1.000-1.035) Urine Protein Negative (Negative) Urine Glucose (UA) Negative (Negative) g/dL Urine Ketones Negative (NEGATIVE) Urine Occult Blood Negative (Negative) Urine Nitrate Negative (Negative) Urine Bilirubin Negative (NEGATIVE) Urine Urobilinogen 0.2 (0.2) E.U./dL Ur Leukocyte Esterase Negative (NEGATIVE) Urine RBC None seen (0-5/HPF) Urine WBC None seen (0-5/HPF) Ur Squamous Epith Cells 1-5 /hpf (0-5/HPF) Urine Bacteria None seen (None) Vol Urine Centrifuged 10ml (spun) U Opiates 300ng/mL cut Negative (Negative) Ur Oxycodone Screen Negative (Negative) Urine Methadone Screen Negative (Negative) Ur Barbiturates Screen Negative (Negative) U Tricyclic Antidepress Positive H (Negative) Ur Phencyclidine Scrn Negative (Negative) Ur Amphetamines Screen Negative (Negative) U Methamphetamines Scrn Negative (Negative) Ur MDMA Scrn (Ecstasy) Negative (Negative) U Benzodiazepines Scrn Positive H (Negative) Urine Cocaine Screen Negative (Negative) U Marijuana (THC) Screen Positive H (Negative) Urine Specific Lutz Normal (Normal) Ur Creatinine Normal (Normal) [facility] Narrative Medical decision making narrative: CC: Witnessed 42nd seizure Complicating co-morbidities: High doses of prescribed Ativan, 6 mg a day, none for 24 hours, poor sleep for the past 48 hours, increased anxiety. Data collected from: patient, medics, children Social determinants of health that may influence the patients condition: Patient lives with her daughter. She is very good about taking her medications and has Medi sets set up but is willing to have her children help to make sure that she is not missing doses or taking extra doses of any of her medications Medical records reviewed: Primary care note from July 18 is reviewed Differential considered: Withdrawal seizure, intracranial hemorrhage, trauma secondary to fall, cardiac syncope, infection Exam documented above, pertinent findings include: Patient is still confused, minor abrasion to the left cheek and minor abrasion under the left side of the jaw. No other obvious physical abnormalities. She is hyperreflexic without clonus in lower extremities Lab Test results independently reviewed as above. Pertinent findings: CBC is unremarkable Chemistries are relatively reassuring Magnesium is slightly low at 1.5 Troponin is undetectable Prolactin level is elevated suggesting seizure activity rather than cardiac syncope Independently reviewed EKG: Sinus rhythm at a rate of 93 without acute ischemic changes Imaging studies independently reviewed: CT scan of the head shows no intracranial hemorrhage, masses or stroke CT scan of the cervical spine shows chronic changes with no acute fractures Treatments: 5 mg of IV diazepam 2 g of IV magnesium, 1 Percocet for facial pain, IV Toradol for overall pain Discussion: 59-year-old woman who lives with her son and daughter. Significant Ativan doses for anxiety and no medication for 24 hours most likely explanation is a lowered seizure threshold secondary to poor sleep overall and missed doses of Ativan with benzodiazepine withdrawal seizure. She had responded well to the 5 mg of diazepam, she had an extended postictal. But now seems back to her baseline and is quite calm and cooperative. Son and daughter at the bedside and plan for help and oversight in setting up her medications is agreed upon. Family interaction and support is quite reassuring. I do not suspect cardiac syncope, stroke, there was no sign of obvious trauma. Because her magnesium was slightly low she was given IV magnesium in the emergency department. She does have her prescription of Ativan that was filled this morning. We will have her continue all of her usual medications this evening. Discussed the fact that she is going to be sore all over tomorrow and the facial pain is going to continue. She was given a Percocet in the emergency department and with shared decision-making we decided that additional narcotics in light of her large dose benzodiazepine at home was not safe nor appropriate. She will use ibuprofen and Tylenol. At this point there was no indication for additional workup and she is safe for discharge Discharge Plan Departure Patient Disposition: Home Clinical Impression: Seizure Contusion of face Qualifiers: Encounter type: initial encounter Qualified Code(s): S00.83XA - Contusion of other part of head, initial encounter Activity Restrictions/Additional Instructions: Thank you for coming in today, I am sorry you had this seizure. Seizures can be quite frightening With your workup today, I do not think this this was related to infection, stroke, heart problems or electrolyte abnormalities. I suspect that the poor sleep over the last number of days and missing 3 doses of your scheduled Ativan contributed to today seizure. I do not think that this is a sign of epilepsy I do not think that you will need further neurology workup or medications unless you have another seizure. Is wonderful to have a supportive family who is willing to make sure that you are safe and taking your medications appropriately. Filling your weekly pill containers as a family effort is safe and I would strongly recommend this. You were given IV diazepam in the emergency department and IV magnesium. I suspect the magnesium is slightly low because of all the diarrhea secondary to your recent colonoscopy When you get home this evening, please take your usual nighttime medications, there are no restrictions to activities at this time. Hope you are able to get a good night sleep. Using 400 mg of ibuprofen (2 [id number] pills) and 1 Tylenol every 6 hours can be very helpful in controlling pain. In addition to the face pain you are likely going to hurt all over with that fall and the degree of muscular/seizure activity. If you find that you are getting worse or develop any new symptoms, please feel free to return to the emergency department for further evaluation. Prescriptions: No Action metformin 1,000 mg tablet 1,000 mg PO BID atorvastatin 40 mg tablet 40 mg PO DAILY lamotrigine 100 mg tablet 100 mg PO BID buspirone 30 mg tablet 30 mg PO BID quetiapine 300 mg tablet 300 mg PO DAILY omeprazole 20 mg capsule,delayed release(DR/EC) 20 mg PO DAILY Januvia 100 mg tablet 100 mg PO DAILY duloxetine 60 mg capsule,delayed release(DR/EC) 60 mg PO DAILY Qty: 90 3RF metoclopramide HCl 5 mg tablet 5 mg PO 4XD Qty: 120 3RF pioglitazone 15 mg tablet 15 mg PO DAILY Qty: 90 3RF lisinopril 5 mg tablet 5 mg PO DAILY Qty: 90 2RF gabapentin 600 mg tablet 600 mg PO 3XD Qty: 90 0RF lorazepam 2 mg tablet 2 mg PO Q8H PRN (Reason: anxiety) Qty: 90 0RF Referrals: Dinora Romo MD [Primary Care Provider, Family Practice] Stand Alone Forms: Patient Portal/API
[2024-09-29] MEDS: OXYCODONE/ACETAMINOPHEN 5/325 TABLET 1 TAB PO (16:06)
[2024-09-29] MEDS: KETOROLAC 30 MG/ML VIAL 15 MG IV (16:06)
[2024-09-29] MEDS: MAGNESIUM SULFATE 2 GM/50 ML PIGGYBACK IV (16:07)
== END 2024-09-29 17:24 | disposition home or self-care (01) ==
PROVIDERS: Emergency Provider Emergency Medicine; PCP Family Medicine
DX: R56.9 Unspecified convulsions (principal); S00.83XA Contusion of other part of head, initial encounter
CPT/HCPCS: 36415; 70450; 72125; 80053; 80305; 81001; 83735; 84146; 84484; 85025; 93005; 93010; 96365; 96375; 99284; J1885; J3360; J3475

== ENCOUNTER → 2025-01-28 13:15 | Outpatient (CLI) | payer MEDICARE, SELFPAY ==
--- NOTE | 2025-01-28 13:16 | DI.RAD.S_ITS ---
PROCEDURE: XR LUMBAR SPINE 2-3V INDICATIONS: pain TECHNIQUE: 3 views of the lumbar spine were acquired. COMPARISON: None. FINDINGS: Bones: 5 [id number] vertebrae are present. There is normal bony alignment. Moderate facet joint arthropathy and hypertrophy, most significant from L3 through L5. Mild anterior endplate spurring. 6 mm Anterolisthesis L4-L5. 3.5 mm retrolisthesis L2-L3. No vertebral body compression fractures. No suspicious bony lesions. Soft tissues: Moderately calcified aorta. Surgical clips project in the right abdomen. Overlying bowel gas pattern is normal. No suspicious soft tissue calcifications. IMPRESSION: Prominent facet arthropathy in the lower lumbar spine. Mild spondylosis and trace spondylolisthesis as described above. Moderately calcified aorta. Dictated by: Billie OWEN Interpreted: Christin Maddox MD on 01/28/2025 at 13:58 Transcribed by: OLENA on 01/28/2025 at 14:08 Approved by: Christin Maddox M.D. on 01/28/2025 at 17:44
--- NOTE | 2025-01-28 13:16 | DI.RAD.S_ITS ---
PROCEDURE: XR HIP W PEL IF DONE BILAT 2V INDICATIONS: pain TECHNIQUE: AP pelvis with lateral view(s) of of both hips COMPARISON: None. FINDINGS: Bones: There are no osseous abnormalities. SI and hip joints: Normal in width and alignment without arthritic change. Severe L4-5 L5-S1 degenerative disc and facet disease is suboptimally imaged Soft tissues: Scattered pelvic calcifications are likely granulomas are phleboliths. IMPRESSION: Normal pelvis Severe L4-5 and L5-S1 degenerative disc facet disease suboptimally imaged Dictated by: Reg Stephens M.D. on 01/29/2025 at 12:32 Approved by: Reg Stephens M.D. on 01/29/2025 at 12:33
== END ==
PROVIDERS: PCP Family Medicine; Referring Provider Family Medicine; Visit Provider Family Medicine
DX: M47.816 Spondylosis without myelopathy or radiculopathy, lumbar region (principal); M47.817 Spondylosis without myelopathy or radiculopathy, lumbosacral region; M51.369 Other intervertebral disc degeneration, lumbar region without mention of lumbar back pain or lower extremity pain; M51.379 Other intervertebral disc degeneration, lumbosacral region without mention of lumbar back pain or lower extremity pain; I70.0 Atherosclerosis of aorta; R52 Pain, unspecified
CPT/HCPCS: 72100; 73521

== ENCOUNTER 2025-03-05 11:02 | Emergency (ER) | payer MEDICARE, MEDICAID, SELFPAY ==
[2025-03-05 11:17] VITALS: BP 119/85; PULSE 110; RESP 16; TEMP 36.6; O2SAT 97; BMI 26.6
--- NOTE | 2025-03-05 11:26 | DI.CT.S_ITS ---
PROCEDURE: CT ABDOMEN PELVIS W CON INDICATIONS: lower abd pain; diarrhea TECHNIQUE: After the administration of intravenous contrast, axial sections acquired from the lung bases to the pubic symphysis. Coronal and sagittal reformats were performed. For radiation dose reduction, the following was used: automated exposure control, adjustment of mA and/or kV according to patient size. COMPARISON: [facility], CT, CT ABDOMEN PELVIS W CON, 09/05/2024, 14:56. FINDINGS: Quality: Diagnostic. Lower Chest: Unremarkable. Abdomen: Liver: Unremarkable. Gallbladder and bile ducts: Cholecystectomy. Compensatory dilation of common bile duct.. Pancreas: Unremarkable. Spleen: Unremarkable. Adrenal Glands: Unremarkable. Kidneys and Ureters: Unremarkable. Stomach: Unremarkable. Bowel: No abnormal dilation. No wall thickening. Normal appendix. Colon decompressed. Peritoneum: No free fluid. No free air. Pelvis: Reproductive: Unremarkable. Bladder: Unremarkable. Other: Lymphatic: No adenopathy. Vasculature: No aortic aneurysm. Moderate atherosclerotic plaque. Abdominal wall: Intact. Bones: No aggressive osseous lesion. Severe lumbar facet arthropathy. IMPRESSION: No acute abnormality. Dictated by: Aayush Abrams M.D. on 03/05/2025 at 11:59 Approved by: Aayush Abrams M.D. on 03/05/2025 at 12:04
[2025-03-05 11:41] LABS: Add Manual Diff / Slide Review NO; Hematocrit 39.0 % (36-46); Hemoglobin 13.1 g/dL (12.0-16.0); Lymphocytes Absolute Auto 3000 /uL (1100-4500); Mean Corpuscular HGB Conc 33.5 % (30-36); Mean Corpuscular Hemoglobin 30.5 PG (26-34); Mean Corpuscular Volume 91.0 fL (80-100); Platelet Count 276 X10^3/uL (150-400)
--- NOTE | 2025-03-05 11:47 | ED_ITS ---
HPI - Nausea/Vomiting/Diarrhea <Chauncey Belcher PA-C - Last Filed: 03/05/25 16:23> General Chief complaint: Nausea/Vomiting/Diarrhea Stated complaint: abdominal cramps, N/V/D 2 days Time Seen by Provider: 03/05/25 11:16 Source: patient Mode of arrival: Ambulatory History of Present Illness HPI Narrative: 59-year-old female with past medical history diabetes, hyperlipidemia, depression, IBS, GERD, hypertension, bipolar 1 disorder, anxiety presents to the ED with 2 days of lower abdominal pain, nausea, vomiting, diarrhea. Patient states her symptoms started yesterday morning after awakening, starting with diarrhea. Patient has been trying to take Reglan to control her nausea. Nausea not well controlled. Patient denies fever, chills, chest pain, shortness of breath, dysuria, lightheadedness, dizziness, syncope. Endorses 10/11 pain. Related Data Home Medications ?Medication ?Instructions ?Recorded ?Confirmed buspirone 30 mg tablet 30 mg PO BID 07/18/24 metformin 1,000 mg tablet 1,000 mg PO BID 07/18/24 quetiapine 300 mg tablet 300 mg PO DAILY 07/18/24 sitagliptin phosphate 100 mg 100 mg PO DAILY 07/18/24 01/16/25 tablet (Januvia) Previous Rx's ?Medication ?Instructions ?Recorded duloxetine 60 mg capsule,delayed 60 mg PO DAILY #90 ca ps 07/18/24 release pioglitazone 15 mg tablet 15 mg PO DAILY #90 tabs 07/03 09/26 lisinopril 5 mg tablet 5 mg PO DAILY #90 tabs 08/20 atorvastatin 40 mg tablet 40 mg PO DAILY #60 tabs 12/03 05/29 metoclopramide HCl 5 mg tablet 5 mg PO 4XD #120 tabs 0 12/24/24 omeprazole 20 mg capsule,delayed 20 mg PO DAILY #60 ca ps 01/14/25 release lamotrigine 100 mg tablet 100 mg PO BID #60 tabs 02/19 gabapentin 600 mg tablet 600 mg PO 3XD #90 tabs 02/25 lorazepam 2 mg tablet 2 mg PO Q8H PRN anxiety #90 tabs 03/04/25 hyoscyamine sulfate 0.125 mg 0.125 mg PO BID-QID PRN d yspepsia 03/05/25 tablet (Levsin) #14 tabs ondansetron 4 mg disintegrating 4 mg PO Q8H PRN nausea and 03/05/25 tablet vomiting #14 tabs Allergies Allergy/AdvReac Type Severity Reaction Status Date / Time cefazolin (From [facility]) Allergy Mild Rash Verified 03/05/25 11:17 Review of Systems <Chauncey Belcher PA-C - Last Filed: 03/05/25 16:23> Constitutional Constitutional: Denies chills, Denies fatigue, Denies fever(s), Denies frequent falls, Denies lethargy and Denies weakness Eyes Eyes: Denies change in vision, Denies eye discharge, Denies irritation and Denies loss of vision ENT Ears, Nose, Mouth, and Throat: Denies change in voice, Denies dizziness, Denies neck pain, Denies sore throat and Denies throat swelling Cardiovascular Cardiovascular: Denies chest pain, Denies irregular heart rhythm, Denies lightheadedness, Denies palpitations, Denies dyspnea, Denies dyspnea on exertion and Denies orthopnea Respiratory Respiratory: Denies cough, Denies dyspnea, Denies dyspnea on exertion and Denies wheezing Gastrointestinal Gastrointestinal: Reports abdominal pain, Denies change in bowel habits, Reports diarrhea, Reports nausea and Reports vomiting Musculoskeletal Musculoskeletal: Denies neck pain and Denies numbness Integumentary/Breasts Skin/Breast: Denies pruritus, Denies erythema, Denies rash and Denies wounds Neurologic Neurologic: Denies behavioral changes, Denies confusion, Denies dizziness, Denies frequent falls, Denies loss of vision, Denies numbness and Denies weakness Psychiatric Psychiatric: Denies anxiety, Denies behavioral changes, Denies confusion, Denies depression, Denies homicidal ideation and Denies suicidal ideation Endocrine Endocrine: Denies fatigue, Denies flushing and Denies palpitations Hematologic/Lymphatic Hematologic/Lymphatic: Denies easy bruising Allergic/Immunologic Allergic/Immunologic: Denies urticaria, Denies throat swelling and Denies wheezing Patient History <Chauncey Belcher PA-C - Last Filed: 03/05/25 16:23> Medical History DM type 2 (diabetes mellitus, type 2) Hyperlipidemia Sciatic pain Depression (~1997) History of bipolar disorder Anxiety (~1997) Headache (~2006) Fibromyalgia (~1996) Chronic back pain (~1994) Irritable bowel syndrome (~2009) GERD (gastroesophageal reflux disease) Hypertension (~1996) Surgical History Anesthesia Fibroids History of carpal tunnel repair History of tubal ligation (~1988) History of cholecystectomy History of shoulder surgery Family History Father Diabetes mellitus Hyperlipidemia Hypertension Mental health problem Mother ALS (amyotrophic lateral sclerosis) Brother Hyperlipidemia Hypertension Mental health problem Grandfather Diabetes mellitus Hyperlipidemia Hypertension Grandmother Cancer Diabetes mellitus Social History Smoking Status: Current every day smoker alcohol intake: never Smoking Status: Current every day smoker Exam <Chauncey Belcher PA-C - Last Filed: 03/05/25 16:23> Narrative Exam Narrative: Const General:?cooperative, healthy appearing and comfortable [facility] Head:?normal to inspection Ears:?hearing grossly normal bilaterally Nose:?external nose normal Face and sinus:?normal facial exam and sinuses nontender Mouth:?oral mucosae normal Throat:?posterior oropharynx normal Eyes General:?appearance normal, both eyes and all related structures Neck Neck:?normal visual inspection and no lymphadenopathy noted Resp Effort & Inspection:?normal respiratory effort Auscultation:?clear to auscultation bilaterally Cardio Rate:?regular rate Rhythm:?regular rhythm GI Abdomen is soft, nondistended. Abdomen is tender in the suprapubic, lower quadrants. Neuro General:?patient alert, patient awake and patient oriented x3 Initial Vital Signs Initial Vital Signs: Vital Signs Temperature 97.9 F 03/05/25 11:17 Pulse Rate 110 H 03/05/25 11:17 Respiratory Rate 16 03/05/25 11:17 Blood Pressure 119/85 03/05/25 11:17 Pulse Oximetry 97 03/05/25 11:17 Oxygen Delivery Method Room Air 03/05/25 11:17 <Todd Ferguson MD - Last Filed: 03/11/25 08:58> Initial Vital Signs Initial Vital Signs: Vital Signs Temperature 97.9 F 03/05/25 11:17 Pulse Rate 110 H 03/05/25 11:17 Respiratory Rate 16 03/05/25 11:17 Blood Pressure 119/85 03/05/25 11:17 Pulse Oximetry 97 03/05/25 11:17 Oxygen Delivery Method Room Air 03/05/25 11:17 Course <Chauncey Belcher PA-C - Last Filed: 03/05/25 16:23> Orders Ordered: Discontinued Medications Sodium Chloride (Normal Saline 0.9%) 1,000 mls @ 1,000 mls/hr IV BOLUS ONE Stop: 03/05/25 13:07 Last Infusion: 03/05/25 15:23 Dose: Infused Documented By: Admin: 03/05/25 14:26 Dose: 1,000 mls/hr Documented By: JARED Ketorolac Tromethamine (Ketorolac 30 Mg/Ml Vial) 15 mg IV NOW ONE Stop: 03/05/25 11:32 Last Admin: 03/05/25 14:26 Dose: 15 mg Documented By: JARED Ondansetron HCl (Ondansetron 4 Mg/2 Ml Inj) 4 mg IV NOW PRN PRN Reason: Nausea And Vomiting Last Admin: 03/05/25 14:27 Dose: 4 mg Documented By: JARED Ondansetron HCl (Ondansetron 4 Mg Odt) 4 mg PO NOW PRN PRN Reason: Nausea And Vomiting Vital Signs Vital signs: Vital Signs - 8 hr 03/05/25 11:17 03/05/25 16:09 Temperature 97.9 F Pulse Rate 110 H 78 Respiratory Rate 16 17 Blood Pressure 119/85 160/108 H Pulse Oximetry 97 98 Oxygen Delivery Method Room Air Room Air <Todd Ferguson MD - Last Filed: 03/11/25 08:58> Orders Ordered: Discontinued Medications Sodium Chloride (Normal Saline 0.9%) 1,000 mls @ 1,000 mls/hr IV BOLUS ONE Stop: 03/05/25 13:07 Last Infusion: 03/05/25 15:23 Dose: Infused Documented By: Admin: 03/05/25 14:26 Dose: 1,000 mls/hr Documented By: JARED Ketorolac Tromethamine (Ketorolac 30 Mg/Ml Vial) 15 mg IV NOW ONE Stop: 03/05/25 11:32 Last Admin: 03/05/25 14:26 Dose: 15 mg Documented By: JARED Ondansetron HCl (Ondansetron 4 Mg/2 Ml Inj) 4 mg IV NOW PRN PRN Reason: Nausea And Vomiting Last Admin: 03/05/25 14:27 Dose: 4 mg Documented By: JARED Ondansetron HCl (Ondansetron 4 Mg Odt) 4 mg PO NOW PRN PRN Reason: Nausea And Vomiting Vital Signs Vital signs: Vital Signs - 8 hr 03/05/25 11:17 03/05/25 16:09 Temperature 97.9 F Pulse Rate 110 H 78 Respiratory Rate 16 17 Blood Pressure 119/85 160/108 H Pulse Oximetry 97 98 Oxygen Delivery Method Room Air Room Air MDM - Nausea/Vomiting/Diarrhea <Chauncey Belcher PA-C - Last Filed: 03/05/25 16:23> Lab Data 03/05/25 11:32 03/05/25 11:32 Labs: Lab Results 03/05/25 Range/Units 11:32 WBC 8.0 (4.5-11.0) X10^3/uL RBC 4.28 (4.0-5.2) X10^6/uL Hgb 13.1 (12.0-16.0) g/dL Hct 39.0 (36-46) % MCV 91.0 (80-100) fL MCH 30.5 (26-34) PG MCHC 33.5 (30-36) % RDW 13.8 (11.6-14.8) % Plt Count 276 (150-400) X10^3/uL Neut % (Auto) 54.5 (50-75) % Lymph % (Auto) 38.0 (25-40) % [place] % (Auto) 4.3 (3-14) % Eos % (Auto) 2.1 (2-4) % Baso % (Auto) 1.1 (0-2) % Neut # (Auto) 4400 (0010-5061) /uL Lymph # (Auto) 3000 (6325-8668) /uL Rowan # (Auto) 300 (0-900) /uL Eos # (Auto) 200 (0-450) /uL Baso # (Auto) 100 (0-100) /uL Sodium 142 (137-145) mmol/L Potassium 4.1 (3.4-5.1) mmol/L Chloride 108 H (98-107) mmol/L Carbon Dioxide 25 (22-32) mmol/L BUN 15 (7-17) mg/dL Creatinine 1.08 H (0.52-1.04) mg/dL Estimated GFR 60 (>60) mL/min BUN/Creatinine Ratio 13.9 (6-22) Glucose 188 H (70-99) mg/dL Calcium 9.8 (8.4-10.2) mg/dL Total Bilirubin 0.5 (0.2-1.3) mg/dL AST 28 (14-36) IU/L ALT 23 (<35) IU/L Alkaline Phosphatase 52 (38-126) U/L Total Protein 7.3 (6.3-8.2) g/dL Albumin 4.5 (3.5-5.0) g/dL Globulin 2.8 (1.7-4.1) g/dL Albumin/Globulin Ratio 1.6 (1.0-2.8) Lipase 41 (23-300) U/L Urine Dip Bedside Urine Glucose Negative Bedside Urine Bilirubin - Negative Bedside Urine Ketone - Negative Urine Specific [place] 1.005 Bedside Urine Occult Blood - Negative Bedside Urine pH 6.0 Bedside Urine Protein +/- 15 Bedside Urine Urobilinogen - Negative Bedside Urine Nitrite - Negative Bedside Urine Leukocytes - Negative Esterase MDM Narrative Medical decision making narrative: 59-year-old female with past medical history diabetes, hyperlipidemia, depression, IBS, GERD, hypertension, bipolar 1 disorder, anxiety presents to the ED with 2 days of lower abdominal pain, nausea, vomiting, diarrhea. Concern for gastroenteritis versus UTI versus diverticulitis versus other intra-abdominal pathology versus other. Will obtain labs, CT abdomen pelvis, UA. Will give Zofran, Toradol, IV fluids. Will reassess. Patient's symptoms improved with medications. Patient is able to hold down fluids. Creatinine mildly elevated to 1.08, which is baseline for patient. All other labs within normal limits. UA without UTI. CT abdomen pelvis with no acute abnormality. Discussed findings with patient that her symptoms are most likely due to gastroenteritis. Prescribed Levsin, Zofran. Recommend taking Imodium for diarrhea. Recommend good hydration. Recommend follow-up with PCP as soon as possible. ED return precautions discussed with patient. Patient verbalized understanding. Medical records reviewed: Yes <Todd Ferguson MD - Last Filed: 03/11/25 08:58> Lab Data Labs: Lab Results 03/05/25 Range/Units 11:32 WBC 8.0 (4.5-11.0) X10^3/uL RBC 4.28 (4.0-5.2) X10^6/uL Hgb 13.1 (12.0-16.0) g/dL Hct 39.0 (36-46) % MCV 91.0 (80-100) fL MCH 30.5 (26-34) PG MCHC 33.5 (30-36) % RDW 13.8 (11.6-14.8) % Plt Count 276 (150-400) X10^3/uL Neut % (Auto) 54.5 (50-75) % Lymph % (Auto) 38.0 (25-40) % [place] % (Auto) 4.3 (3-14) % Eos % (Auto) 2.1 (2-4) % Baso % (Auto) 1.1 (0-2) % Neut # (Auto) 4400 (5156-9876) /uL Lymph # (Auto) 3000 (4913-4888) /uL [place] # (Auto) 300 (0-900) /uL Eos # (Auto) 200 (0-450) /uL Baso # (Auto) 100 (0-100) /uL Sodium 142 (137-145) mmol/L Potassium 4.1 (3.4-5.1) mmol/L Chloride 108 H (98-107) mmol/L Carbon Dioxide 25 (22-32) mmol/L BUN 15 (7-17) mg/dL Creatinine 1.08 H (0.52-1.04) mg/dL Estimated GFR 60 (>60) mL/min BUN/Creatinine Ratio 13.9 (6-22) Glucose 188 H (70-99) mg/dL Calcium 9.8 (8.4-10.2) mg/dL Total Bilirubin 0.5 (0.2-1.3) mg/dL AST 28 (14-36) IU/L ALT 23 (<35) IU/L Alkaline Phosphatase 52 (38-126) U/L Total Protein 7.3 (6.3-8.2) g/dL Albumin 4.5 (3.5-5.0) g/dL Globulin 2.8 (1.7-4.1) g/dL Albumin/Globulin Ratio 1.6 (1.0-2.8) Lipase 41 (23-300) U/L Urine Dip Bedside Urine Glucose Negative Bedside Urine Bilirubin - Negative Bedside Urine Ketone - Negative Urine Specific [place] 1.005 Bedside Urine Occult Blood - Negative Bedside Urine pH 6.0 Bedside Urine Protein +/- 15 Bedside Urine Urobilinogen - Negative Bedside Urine Nitrite - Negative Bedside Urine Leukocytes - Negative Esterase Discharge Plan Departure Patient Disposition: Home Clinical Impression: Gastroenteritis Instructions: DI for Viral Gastroenteritis -- Adult Activity Restrictions/Additional Instructions: You were evaluated in the emergency department today for abdominal pain, diarrhea. Your labs, urine and CT scans were normal. Your symptoms are most likely due to food poisoning or gastroenteritis. You are being prescribed Zofran for nausea to take as needed as well as Levsin for abdominal cramping. You may also take Imodium for diarrhea. Please continue to consume lots of water to stay hydrated. Please follow-up with your PCP as soon as possible. Return to the ED if you have worsening symptoms. Prescriptions: New hyoscyamine sulfate [Levsin] 0.125 mg tablet 0.125 mg PO BID-QID PRN (Reason: dyspepsia) Qty: 14 0RF ondansetron 4 mg tablet,disintegrating 4 mg PO Q8H PRN (Reason: nausea and vomiting) Qty: 14 0RF No Action metformin 1,000 mg tablet 1,000 mg PO BID buspirone 30 mg tablet 30 mg PO BID quetiapine 300 mg tablet 300 mg PO DAILY Januvia 100 mg tablet 100 mg PO DAILY duloxetine 60 mg capsule,delayed release(DR/EC) 60 mg PO DAILY Qty: 90 3RF pioglitazone 15 mg tablet 15 mg PO DAILY Qty: 90 3RF lisinopril 5 mg tablet 5 mg PO DAILY Qty: 90 2RF atorvastatin 40 mg tablet 40 mg PO DAILY Qty: 60 0RF metoclopramide HCl 5 mg tablet 5 mg PO 4XD Qty: 120 3RF omeprazole 20 mg capsule,delayed release(DR/EC) 20 mg PO DAILY Qty: 60 0RF lamotrigine 100 mg tablet 100 mg PO BID Qty: 60 0RF gabapentin 600 mg tablet 600 mg PO 3XD Qty: 90 0RF lorazepam 2 mg tablet 2 mg PO Q8H PRN (Reason: anxiety) Qty: 90 0RF Referrals: Dinora Romo MD [Primary Care Provider, Family Practice] Stand Alone Forms: Patient Portal/API ED Sign-out <Todd eFrguson MD - Last Filed: 03/11/25 08:58> Cosign ED Attending Cosignature Attestation: I was immediately available in the department for consultation. ?This documentation has been reviewed and I agree with assessment and plan. Supervised by Todd Ferguson MD
[2025-03-05 11:52] LABS: Alanine Aminotransferase 23 IU/L (<35); Albumin 4.5 g/dL (3.5-5.0); Albumin Globulin Ratio 1.6 (1.0-2.8); Alkaline Phosphatase 52 U/L (38-126); Blood Urea Nitrogen 15 mg/dL (7-17); Calcium 9.8 mg/dL (8.4-10.2); Carbon Dioxide 25 mmol/L (22-32); Chloride 108 mmol/L (98-107); Estimated Glomerular Filt Rate 60 mL/min (>60); Globulin 2.8 g/dL (1.7-4.1); Glucose 188 mg/dL (70-99); HEMOLYSIS < 15 (0-50); Lipase 41 U/L (23-300); Potassium 4.1 mmol/L (3.4-5.1); Sodium 142 mmol/L (137-145); Total Protein 7.3 g/dL (6.3-8.2)
[2025-03-05] MEDS: KETOROLAC 30 MG/ML VIAL 15 MG IV (14:26)
[2025-03-05] MEDS: SODIUM CHLORIDE 0.9% 1,000 ML 1000 ML IV (14:26)
[2025-03-05] MEDS: ONDANSETRON 4 MG/2 ML INJ IV (14:27)
[2025-03-05 16:09] VITALS: BP 160/108; PULSE 78; RESP 17; O2SAT 98
== END 2025-03-05 16:13 | disposition home or self-care (01) ==
PROVIDERS: Emergency Provider Student in an Organized Health Care Education/Training Program; PCP Family Medicine
DX: K52.9 Noninfective gastroenteritis and colitis, unspecified (principal)
CPT/HCPCS: 36415; 74177; 80053; 81003; 83690; 85025; 96361; 96374; 96375; 99284; J1885; J2405; J7030; Q9967

== ENCOUNTER 2025-03-30 13:42 | Emergency (ER) | payer MEDICARE, MEDICAID, SELFPAY ==
[2025-03-30] VITALS (17 sets, daily range): BP systolic 118–176; BP diastolic 67–93; PULSE 60–113; RESP 11–28; TEMP 37.3; O2SAT 91–98; BMI 28.1
--- NOTE | 2025-03-30 14:21 | EKG_ITS ---
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
--- NOTE | 2025-03-30 14:21 | DI.RAD.S_ITS ---
PROCEDURE: XR CHEST 1V INDICATIONS: suspected sepsis TECHNIQUE: One view of the chest was acquired. COMPARISON: None. FINDINGS: Surgical changes and devices: None. Lungs and pleura: On this semiupright portable chest examination, no large pneumothorax or large pleural effusions are seen. No focal infiltrates are seen. Mediastinum: Mediastinal contours appear normal. Heart size is normal. Atherosclerotic calcification of the aortic arch is noted. Bones and chest wall: No suspicious bony lesions. Age-appropriate bony degenerative changes are seen. Mild dextroconvex scoliotic curvature is seen. Overlying soft tissues appear unremarkable. IMPRESSION: Clear lungs without infiltrates seen. Dictated by: Misha Hernandez M.D. on 03/30/2025 at 14:00 Approved by: Misha Hernandez M.D. on 03/30/2025 at 14:00
--- NOTE | 2025-03-30 14:29 | ED.NAVMDI ---
HPI - Nausea/Vomiting/Diarrhea General Chief complaint: Nausea/Vomiting/Diarrhea Stated complaint: Diarrhea Nausea headache Time Seen by Provider: 03/30/25 13:45 Source: patient Mode of arrival: Ambulatory History of Present Illness HPI Narrative: 59y F history of cholecystectomy, diabetes, dyslipidemia, depression, GERD, IBS, hypertension, bipolar 1 disorder, anxiety presents with 4 days of nausea and watery loose diarrhea nonbloody and abdominal cramping unable to hold anything down and weak and dehydrated. Patient denies fever, chills, chest pain, shortness of breath, dysuria, cough, sore throat, sick contacts, recent antibiotic use. Other than what is stated 14 point review system is negative. Related Data Home Medications ?Medication ?Instructions ?Recorded ?Confirmed metformin 1,000 mg tablet 1,000 mg PO BID 07/18/24 01/16/25 quetiapine 300 mg tablet 300 mg PO DAILY 07/18/24 01/16/25 Previous Rx's ?Medication ?Instructions ?Recorded duloxetine 60 mg capsule,delayed 60 mg PO DAILY #90 caps 07/18/24 release pioglitazone 15 mg tablet 15 mg PO DAILY #90 tabs 07/18/24 lisinopril 5 mg tablet 5 mg PO DAILY #90 tabs 08/20/24 atorvastatin 40 mg tablet 40 mg PO DAILY #60 tabs 12/14/24 metoclopramide HCl 5 mg tablet 5 mg PO 4XD #120 tabs 12/24/24 hyoscyamine sulfate 0.125 mg 0.125 mg PO BID-QID PRN dyspepsia 03/05/25 tablet (Levsin) #14 tabs ondansetron 4 mg disintegrating 4 mg PO Q8H PRN nausea and 03/05/25 tablet vomiting #14 tabs sitagliptin phosphate 100 mg 100 mg PO DAILY #90 tabs 03/13/25 tablet (Januvia) buspirone 30 mg tablet 30 mg PO BID #180 tabs 03/25/25 gabapentin 600 mg tablet 600 mg PO 3XD #90 tabs 03/25/25 lamotrigine 100 mg tablet 100 mg PO BID #60 tabs 03/25/25 omeprazole 20 mg capsule,delayed 20 mg PO DAILY #60 caps 03/25/25 release lorazepam 2 mg tablet 2 mg PO Q8H PRN anxiety #90 tabs 12/26/25 dicyclomine 20 mg tablet 20 mg PO TID #30 tabs 03/30/25 ondansetron HCl 4 mg tablet 4 mg PO Q8H PRN nausea and 03/30/25 vomiting #30 tabs Allergies Allergy/AdvReac Type Severity Reaction Status Date / Time cefazolin (From [facility]) Allergy Mild Rash Verified 03/30/25 14:09 Cephalosporins Allergy Verified 03/30/25 14:09 Review of Systems Review of Systems ROS Unobtainable: All systems reviewed & are unremarkable except as noted in HPI and below Patient History Medical History DM type 2 (diabetes mellitus, type 2) Hyperlipidemia Sciatic pain Depression (~1997) History of bipolar disorder Anxiety (~1997) Headache (~2006) Fibromyalgia (~1996) Chronic back pain (~1994) Irritable bowel syndrome (~2009) GERD (gastroesophageal reflux disease) Hypertension (~1996) Surgical History Anesthesia Fibroids History of carpal tunnel repair History of tubal ligation (~1988) History of cholecystectomy History of shoulder surgery Family History Father Diabetes mellitus Hyperlipidemia Hypertension Mental health problem Mother ALS (amyotrophic lateral sclerosis) Brother Hyperlipidemia Hypertension Mental health problem Grandfather Diabetes mellitus Hyperlipidemia Hypertension Grandmother Cancer Diabetes mellitus Social History Smoking Status: Current every day smoker alcohol intake: never Smoking Status: Current every day smoker Exam Narrative Exam Narrative: GENERAL: [59] year old patient appears stated age. Well-developed patient, in mild distress. HEAD: Atraumatic. Normocephalic. EYES: Pupils equal round and reactive. Extraocular motions intact. No scleral icterus. No injection or drainage. ENT: Nose without bleeding, purulent drainage. Throat without erythema, tonsillar hypertrophy or exudate. Airway patent. NECK: Trachea midline. Non tender CARDIOVASCULAR: Regular rate and rhythm without murmurs, gallops, or rubs. RESPIRATORY: Clear to auscultation. Breath sounds equal bilaterally. No wheezes, rales, or rhonchi. GASTROINTESTINAL: Abdomen soft, epigastric TTP no r//r/g, nondistended. EXTREMITIES: No edema or joint tenderness. BACK: Nontender without deformity or crepitance. No flank tenderness. NEURO: AOx3. SKIN: No rash or erythema of visible areas Initial Vital Signs Initial Vital Signs: Vital Signs Temperature 99.2 F 03/30/25 14:09 Pulse Rate 113 H 03/30/25 14:09 Respiratory Rate 20 03/30/25 14:09 Blood Pressure 126/93 H 03/30/25 14:09 Pulse Oximetry 96 03/30/25 14:09 Oxygen Delivery Method Room Air 03/30/25 14:09 Course Orders Ordered: ED Orders 03/30/25 14:20 Complete Blood Count AUTO DIFF Stat Comprehensive Metabolic Panel Stat Ketones (Beta-Hydroxybutyrate) Stat Lactate (Lactic Acid) Stat Lipase Stat PTT Partial Thromboplastin Joss Stat Procalcitonin Stat Prothrombin Time INR Stat 03/30/25 14:21 XR chest 1V Stat EKG-12 Lead Stat RT Consult Eval and Treat NOW 03/30/25 14:29 CT abdomen pelvis w con Stat 03/30/25 14:30 Blood Culture Stat Covid-19 + FLU A/B + RSV - PCR Stat Ictotest Urine Stat Urine Microscopic Stat Ondansetron HCl (Ondansetron 4 Mg/2 Ml Inj) 4 mg IV NOW PRN PRN Reason: Nausea And Vomiting Ondansetron HCl (Ondansetron 4 Mg Odt) 4 mg PO NOW PRN PRN Reason: Nausea And Vomiting Discontinued Medications Acetaminophen (Acetaminophen 325 Mg Tablet) 975 mg PO NOW ONE Stop: 03/30/25 14:30 Last Admin: 03/30/25 14:43 Dose: 975 mg Documented By: CLARA Albuterol/Ipratropium (Albuterol/Ipratropium 3 Ml Ampul) 3 ml INH NOW ONE Stop: 03/30/25 14:54 Last Admin: 03/30/25 14:55 Dose: 3 ml Documented By: NEGIN Hydromorphone HCl (Hydromorphone 1 Mg/Ml Syringe) 1 mg IV NOW ONE Stop: 03/30/25 15:40 Sodium Chloride (Normal Saline 0.9%) 1,000 mls @ 1,000 mls/hr IV BOLUS ONE Stop: 03/30/25 15:20 Last Admin: 03/30/25 14:34 Dose: Not Given Documented By: CHRIS Lactated Ringer's (Lactated Ringers) 1,000 mls @ 1,000 mls/hr IV BOLUS ONE Stop: 03/30/25 15:24 Last Infusion: 03/30/25 15:33 Dose: Infused Documented By: Admin: 03/30/25 14:34 Dose: 1,000 mls/hr Documented By: CLARA Lactated Ringer's (Lactated Ringers) 1,000 mls @ 1,000 mls/hr IV BOLUS ONE Stop: 03/30/25 15:24 Last Admin: 03/30/25 15:34 Dose: 1,000 mls/hr Documented By: CLARA Ketorolac Tromethamine (Ketorolac 30 Mg/Ml Vial) 15 mg IV NOW ONE Stop: 03/30/25 14:30 Last Admin: 03/30/25 14:44 Dose: 15 mg Documented By: CLARA Ondansetron HCl (Ondansetron 4 Mg/2 Ml Inj) 4 mg IV NOW ONE Stop: 03/30/25 14:31 Last Admin: 03/30/25 14:44 Dose: 4 mg Documented By: CLARA Vital Signs Vital signs: Vital Signs - 8 hr 03/30/25 14:09 03/30/25 14:32 03/30/25 14:33 Temperature 99.2 F Pulse Rate 113 H Respiratory Rate 20 24 Blood Pressure 126/93 H 118/85 Pulse Oximetry 96 96 Oxygen Delivery Method Room Air 03/30/25 14:33 03/30/25 15:00 03/30/25 15:01 Temperature Pulse Rate 99 H 76 Respiratory Rate Blood Pressure 140/67 Pulse Oximetry 96 98 Oxygen Delivery Method 03/30/25 15:01 03/30/25 15:07 03/30/25 15:30 Temperature Pulse Rate 77 69 77 Respiratory Rate 12 20 Blood Pressure Pulse Oximetry 98 93 Oxygen Delivery Method Room Air 03/30/25 15:32 03/30/25 15:32 Temperature Pulse Rate 78 Respiratory Rate 13 Blood Pressure 146/84 H Pulse Oximetry 97 Oxygen Delivery Method MDM - Nausea/Vomiting/Diarrhea Lab Data 03/30/25 14:20 03/30/25 14:20 Labs: Lab Results 03/30/25 03/30/25 Range/Units 14:20 14:30 WBC 11.8 H (4.5-11.0) X10^3/uL RBC 4.38 (4.0-5.2) X10^6/uL Hgb 13.1 (12.0-16.0) g/dL Hct 39.4 (36-46) % MCV 89.9 (80-100) fL MCH 29.9 (26-34) PG MCHC 33.2 (30-36) % RDW 14.1 (11.6-14.8) % Plt Count 277 (150-400) X10^3/uL Neut % (Auto) 66.2 (50-75) % Lymph % (Auto) 20.9 L (25-40) % [place] % (Auto) 4.1 (3-14) % Eos % (Auto) 7.5 H (2-4) % Baso % (Auto) 1.3 (0-2) % Neut # (Auto) 7800 H (4051-0989) /uL Lymph # (Auto) 2500 (2457-2781) /uL [place] # (Auto) 500 (0-900) /uL Eos # (Auto) 900 H (0-450) /uL Baso # (Auto) 200 H (0-100) /uL PT 12.5 (9.4-12.5) SECONDS INR 1.1 (0.9-1.3) APTT 33 (25.1-36.5) SECONDS Sodium 141 (137-145) mmol/L Potassium 4.3 (3.4-5.1) mmol/L Chloride 106 (98-107) mmol/L Carbon Dioxide 23 (22-32) mmol/L BUN 25 H (7-17) mg/dL Creatinine 1.10 H (0.52-1.04) mg/dL Estimated GFR 58 L (>60) mL/min BUN/Creatinine Ratio 22.7 H (6-22) Glucose 240 H (70-99) mg/dL Lactate 1.5 (0.7-2.1) mmol/L Calcium 9.7 (8.4-10.2) mg/dL Total Bilirubin 0.3 (0.2-1.3) mg/dL AST 22 (14-36) IU/L ALT 16 (<35) IU/L Alkaline Phosphatase 55 (38-126) U/L Total Protein 7.7 (6.3-8.2) g/dL Albumin 4.8 (3.5-5.0) g/dL Globulin 2.9 (1.7-4.1) g/dL Albumin/Globulin Ratio 1.7 (1.0-2.8) Lipase 38 (23-300) U/L Procalcitonin 0.031 (<0.5) ng/mL Ur Bilirubin Confirm Negative (Negative) Urine RBC 0-1/hpf (0-5/HPF) Urine WBC 0-1/hpf (0-5/HPF) Ur Squamous Epith Cells 0-1 /hpf (0-5/HPF) Urine Bacteria Occasional (0-1) (None) Ur Culture Indicated? Cult not indicated Vol Urine Centrifuged 2 Ketones 0.08 (<0.27) mmol/L SARS-CoV-2 (PCR) Negative (Negative) Influenza A (RT-PCR) Flu a negative (NEGATIVE) Influenza B (RT-PCR) Flu b negative (NEGATIVE) RSV (PCR) Negative (Negative) Urine Dip Bedside Urine Glucose Negative Bedside Urine Bilirubin + 1 Bedside Urine Ketone - Negative Urine Specific [place] 1.020 Bedside Urine Occult Blood - Negative Bedside Urine pH 6.0 Bedside Urine Protein + 30 Bedside Urine Urobilinogen - Negative Bedside Urine Nitrite - Negative Bedside Urine Leukocytes - Negative Esterase Imaging Data CT scan - abdomen/pelvis: Radiologist's Impression: [place] [address] CT Scan Report Signed Patient: Flor Mulligan MR#: [id number] : 1965 Acct:[id number] Age/Sex: 59 / F Date of Service: 03/30/25 Loc: ED Accession Number: [id number] Procedure: CT abdomen pelvis w con Ordering Provider: Reg Thomson D.O. PROCEDURE: CT ABDOMEN PELVIS W CON INDICATIONS: abd pain/diarrhea/nausea/sepsis TECHNIQUE: After the administration of intravenous contrast, axial sections acquired from the lung bases to the pubic symphysis. Coronal and sagittal reformats were performed. For radiation dose reduction, the following was used: automated exposure control, adjustment of mA and/or kV according to patient size. COMPARISON: [facility], CT, CT ABDOMEN PELVIS W CON, 03/05/2025, 11:33. FINDINGS: Image quality: Suboptimal due to motion artifact. Lower Chest: No significant findings. ABDOMEN: Liver: No solid mass. Gallbladder: Absent. Biliary ducts: No biliary dilation. Pancreas: No ductal dilation. Spleen: Size is within normal limits. Adrenal Glands: No adrenal nodules. Kidneys and Ureters: No hydronephrosis. No solid mass. No complex renal cystic lesion which requires follow up. Stomach and Bowel: Normal colonic caliber, without significant wall thickening. Normal appendix. Peritoneum: No abnormal intraperitoneal fluid. No free air. Ventral Wall: No significant ventral hernia. Abdominal Nodes: No retroperitoneal or mesenteric adenopathy by size criteria. Vessels: Aorta and inferior vena cava are normal in size. PELVIS: Pelvic Organs: Unremarkable. Bladder: No bladder wall thickening, accounting for underdistention. Pelvic Nodes: No enlarged lymph nodes. Miscellaneous: No inguinal hernias are seen. Bones: No aggressive osseous abnormality. Grade 1 anterolisthesis of L4 on L5 due to facet arthrosis. IMPRESSION: No acute abnormality. Dictated by: Fernando Carlos M.D. on 03/30/2025 at 14:31 Approved by: Fernando Carlos M.D. on 03/30/2025 at 14:33 [facility] Narrative Medical decision making narrative: All labwork, vital signs, head librarian note, medication list, previous ER visits and all imaging studies reviewed. Ct abd pelvis - no acute process. Pt given LR 1L bolus x3, zofran, dilaudid 1mg IV. Differential diagnosis viral gastroenteritis, dehydration, electrolyte derangement, constipation, small-bowel obstruction. Pt feels much better on re-examination. D/c home on zofran and bentyl rx. Discharge Plan Departure Patient Disposition: Home Clinical Impression: Abdominal pain, Diarrhea Instructions: DI for Abdominal Pain-Adult Activity Restrictions/Additional Instructions: Return with new or worsening symptoms. Clear liquid diet advance as tolerated. Take medication as directed. Follow up PCP 1 week if no improvement in symptoms. Prescriptions: New ondansetron HCl 4 mg tablet 4 mg PO Q8H PRN (Reason: nausea and vomiting) Qty: 30 0RF dicyclomine 20 mg tablet 20 mg PO TID Qty: 30 0RF No Action metformin 1,000 mg tablet 1,000 mg PO BID quetiapine 300 mg tablet 300 mg PO DAILY duloxetine 60 mg capsule,delayed release(DR/EC) 60 mg PO DAILY Qty: 90 3RF pioglitazone 15 mg tablet 15 mg PO DAILY Qty: 90 3RF lisinopril 5 mg tablet 5 mg PO DAILY Qty: 90 2RF atorvastatin 40 mg tablet 40 mg PO DAILY Qty: 60 0RF metoclopramide HCl 5 mg tablet 5 mg PO 4XD Qty: 120 3RF Januvia 100 mg tablet 100 mg PO DAILY Qty: 90 0RF omeprazole 20 mg capsule,delayed release(DR/EC) 20 mg PO DAILY Qty: 60 0RF buspirone 30 mg tablet 30 mg PO BID Qty: 180 0RF lamotrigine 100 mg tablet 100 mg PO BID Qty: 60 0RF gabapentin 600 mg tablet 600 mg PO 3XD Qty: 90 0RF lorazepam 2 mg tablet 2 mg PO Q8H PRN (Reason: anxiety) Qty: 90 0RF hyoscyamine sulfate [Levsin] 0.125 mg tablet 0.125 mg PO BID-QID PRN (Reason: dyspepsia) Qty: 14 0RF ondansetron 4 mg tablet,disintegrating 4 mg PO Q8H PRN (Reason: nausea and vomiting) Qty: 14 0RF Referrals: Dinora Romo MD [Primary Care Provider, Family Practice] Stand Alone Forms: Patient Portal/API
[2025-03-30] MEDS: LACTATED RINGERS 1,000 ML 1000 ML IV ×3 (14:34→16:51)
[2025-03-30] MEDS: ACETAMINOPHEN 325 MG TABLET 975 MG PO (14:43)
[2025-03-30 14:44] LABS: Add Manual Diff / Slide Review NO; Hematocrit 39.4 % (36-46); Hemoglobin 13.1 g/dL (12.0-16.0); Lymphocytes Absolute Auto 2500 /uL (1100-4500); Mean Corpuscular HGB Conc 33.2 % (30-36); Mean Corpuscular Hemoglobin 29.9 PG (26-34); Mean Corpuscular Volume 89.9 fL (80-100); Platelet Count 277 X10^3/uL (150-400)
[2025-03-30] MEDS: KETOROLAC 30 MG/ML VIAL 15 MG IV (14:44)
[2025-03-30] MEDS: ONDANSETRON 4 MG/2 ML INJ IV (14:44)
[2025-03-30 14:52] LABS: INR 1.1 (0.9-1.3); Prothrombin Time 12.5 SECONDS (9.4-12.5)
[2025-03-30 14:54] LABS: PTT Partial Thromboplastin Tim 33 SECONDS (25.1-36.5)
[2025-03-30] MEDS: ALBUTEROL/IPRATROPIUM 3 ML AMPUL INH (14:55)
[2025-03-30 14:56] LABS: Alanine Aminotransferase 16 IU/L (<35); Albumin 4.8 g/dL (3.5-5.0); Albumin Globulin Ratio 1.7 (1.0-2.8); Alkaline Phosphatase 55 U/L (38-126); Blood Urea Nitrogen 25 mg/dL (7-17); Calcium 9.7 mg/dL (8.4-10.2); Carbon Dioxide 23 mmol/L (22-32); Chloride 106 mmol/L (98-107); Estimated Glomerular Filt Rate 58 mL/min (>60); Globulin 2.9 g/dL (1.7-4.1); Glucose 240 mg/dL (70-99); HEMOLYSIS < 15 (0-50); Lactate (Lactic Acid) 1.5 mmol/L (0.7-2.1); Lipase 38 U/L (23-300); Potassium 4.3 mmol/L (3.4-5.1); Sodium 141 mmol/L (137-145); Total Protein 7.7 g/dL (6.3-8.2)
[2025-03-30 15:00] LABS: Ictotest Urine Negative (Negative)
[2025-03-30 15:07] LABS: Ketones (Beta-Hydroxybutyrate) 0.08 mmol/L (<0.27)
[2025-03-30 15:13] LABS: Culture Indicated Urine Cult Not Indicated
[2025-03-30 15:13] LABS: Procalcitonin 0.031 ng/mL (<0.5)
[2025-03-30 15:23] LABS: Influenza A - CEPHEID Flu A NEGATIVE (NEGATIVE); Influenza B - CEPHEID Flu B NEGATIVE (NEGATIVE)
[2025-03-30 15:37] LABS: COVID-19 CEPHEID 4-PLEX PCR Negative (Negative)
--- NOTE | 2025-03-30 16:57 | PC.NURSE ---
prompted pt to use bathroom to obtain stool sample, pt reports no urge to go at this time but is aware stool sample required for testing and agreeable
== END 2025-03-30 18:45 | disposition home or self-care (01) ==
PROVIDERS: Emergency Provider Family Medicine; PCP Family Medicine
DX: R10.9 Unspecified abdominal pain (principal); R19.7 Diarrhea, unspecified; R53.1 Weakness; E86.0 Dehydration; E11.9 Type 2 diabetes mellitus without complications; I10 Essential (primary) hypertension
CPT/HCPCS: 36415; 71045; 74177; 80053; 81003; 81015; 82009; 83605; 83690; 84145; 85025; 85610; 85730; 87040; 87637; 93005; 94640; 96361; 96374; 96375; 99285; J1171; J1885; J2405; J7120; Q9967